=== PATIENT | female | born 1985 | race Two or more races ===

== ENCOUNTER 2019-10-13 16:52 | Day surgery (SDC) | payer OTHER ==
[~2019-10-13] VITALS: Ht 154.9 cm; Wt 63.5 kg
[2019-10-13 18:42] LABS: Basophils # (auto) 0.1 uL; Basophils % (auto) 0.7 % (0.0-2.0); Eosinophils # (auto) 0.1 uL; Hematocrit 39.5 % (36.0-46.0); Hemoglobin 13.5 g/dL (12.2-16.2); Lymphocytes # (auto) 2.4 uL; Lymphocytes % (auto) 22.7 % (10.0-50.0); Mean Corpuscular Hemoglobin 30.8 pg (28.0-32.0); Mean Corpuscular Hgb Conc. 34.2 g/dL (32.0-36.0); Mean Corpuscular Volume 90.1 fL (80.0-100.0); Monocytes # (auto) 0.6 uL; Neutrophils # (auto) 7.3 uL; Neutrophils % (auto) 69.6 % (37.0-80.0); Nucleated Red Blood Cells % 0.1 %; Platelet Count (auto) 255 10^3/uL (140-450); Red Blood Cells 4.38 10^6/uL (4.0-5.20); White Blood Cell 10.5 10^3/uL (4.4-10.8)
[2019-10-13 18:50] LABS: Albumin 3.7 g/dL (3.4-5.0); Calcium 8.8 mg/dL (8.5-10.1); Potassium 3.6 mmol/L (3.5-5.1)
[2019-10-13 18:55] LABS: BUN/Creatinine Ratio 13.7; Bilirubin, Total 0.3 mg/dL (0.2-1.0); Total Protein 7.5 g/dL (6.4-8.2)
[2019-10-13] MEDS ORDERED: SODIUM CHLORIDE 0.9% 1,000 ML IV ONE (21:30)
[2019-10-13] MEDS ORDERED: ACETAMINOPHEN 325 MG TAB PO ONE (23:30)
[2019-10-14] VITALS (14 sets, daily range): BP systolic 88–110; BP diastolic 40–68
[2019-10-14 02:38] LABS: Hematocrit 29.8 % (36.0-46.0)
[2019-10-14] MEDS ORDERED: ALBUMIN 5% 50 ML IV ONE (03:45)
[2019-10-14] MEDS ORDERED: ALBUMIN 5% 250 ML IV ONE (04:00)
[2019-10-14] MEDS ORDERED: LACT. RINGERS/OXYTOCIN 20UNITS 1,000 ML IV ONE (10:15)
[2019-10-14 10:53] LABS: INR 1.03 (0.9-1.15); Partial Thromboplastin Time 29.3 sec (23.64-32.05)
[2019-10-14] MEDS ORDERED: ceFAZolin 1GM/50ML 50 ML IV ONE (13:23)
[2019-10-14] MEDS ORDERED: OXYTOCIN 10UNIT/ML 1ML VIAL IV ONE (15:08)
[2019-10-14] MEDS ORDERED: METOCLOPRAMIDE HCL 5MG/ml INJ 2ml VIAL IV ONE (15:08)
[2019-10-14] MEDS ORDERED: LACTATED RINGER'S 1,000 ML IV SCH (15:13)
[2019-10-14] MEDS ORDERED: ePHEDrine SULFATE 50 MG/ML AMP IV PRN (15:15)
[2019-10-14] MEDS ORDERED: ONDANSETRON HCL 4 MG/2 ML VIAL IV PRN ×2 (15:15)
[2019-10-14] MEDS ORDERED: MORPHINE SULFATE 4 MG/ML SYR/VIAL IV PRN (15:15)
[2019-10-14] MEDS ORDERED: LABETALOL HCL 5 MG/ML 4ML SYRINGE IV PRN (15:15)
[2019-10-14] MEDS ORDERED: HYDROmorphone HCL 2 MG/ML VL IV PRN (15:15)
[2019-10-14] MEDS ORDERED: RHO (D) IMMUNE GLOBULIN 300 MCG INJ IM PRN (15:15)
[2019-10-14] MEDS ORDERED: fentaNYL CITRATE 100 MCG/2 ML VL ONE (15:19)
[2019-10-14] MEDS ORDERED: MIDAZOLAM HCL 1MG/1ML-2 ML VIAL ONE (15:19)
[2019-10-14] MEDS ORDERED: DexAMETHasone SOD PHOS 10MG/1ML VIAL INJ ONE (15:33)
[2019-10-14] MEDS ORDERED: PROPOFOL 10 MG/ML 20 ML IV ONE (15:33)
== END 2019-10-14 15:54 | disposition home or self-care (01) ==
LOC: ER 16:55 → SUR 16:56 → ER 10-14 13:36 → SUR 10-14 15:54
PROVIDERS: ATTEND Obstetrics & Gynecology
DX: O03.4 Incomplete spontaneous abortion without complication (principal); D62 Acute posthemorrhagic anemia; Z72.89 Other problems related to lifestyle
CPT/HCPCS: 36415; 36430; 59812; 76801; 76817; 80053; 84702; 85014; 85018; 85025; 85610; 85730; 86850; 86900; 86901; 86920; 88305; 99284; J0690; J1100; J2250; J2590; J2704; J2765; J3010; J7030; P9016; P9045